=== PATIENT | female | born 1970 | race Caucasian/White ===

== ENCOUNTER 2016-06-23 18:47 | Emergency (ER) | payer OTHER ==
[2016-06-23] MEDS ORDERED: HYDROcodone/APAP 5/325 MG 1 TAB TABLET PO ONE (20:01)
[2016-06-23] MEDS ORDERED: HYDROcodone/APAP PREPAC 5/325 1 TAB TABLET PO ONE (20:05)
--- NOTE | 2016-06-23 20:21 | ER NURSING DOCUMENTATION ---
Nurse's Notes [facility] Name:Lesley Salguero Age:45 yrs Sex:Female :1970 Arrival Date:06/23/2016 Time:18:47 Bed6 Private MD: Diagnosis:Sacrum - Coccyx Contusion Presentation: 06/23 19:16 Presenting complaint: Patient states: Slipped while getting off horse, landing on tailbone at 1800 today. Transition of care: patient was not received from another setting of care. 19:16 Acuity: GEMMA 3 19:16 Method Of Arrival: Private Vehicle 19:18 Risk considerations: patient denies associated abdominal pain and neurologic symptoms. Notified ED Physician of patient's arrival and CC Isidro Guzman notified. Triage Assessment: 19:21 General: Appears uncomfortable, Behavior is cooperative, pleasant. Pain: Complains of sj pain in coccyx Pain currently is 4 out of 10 on a pain scale. Alleviated by laying prone Aggravated by sitting. Neuro: Level of Consciousness is awake, alert, Oriented to person, place, time, event, denies paresthesias. Cardiovascular: Capillary refill < 3 seconds. Respiratory: Respiratory effort is even, unlabored, Respiratory pattern is regular. Musculoskeletal: Circulation, motion, and sensation intact Capillary refill < 3 seconds Range of motion intact in all extremities. 19:24 Pain: Aggravated by weight bearing. Musculoskeletal: sj Historical: - Allergies: No known drug Allergies; - Home Meds: 1. herbals 2. vitamins - Tetanus: < 10 years. - Ebola Screening: : Patient negative for fever greater than or equal to 101.5 degrees Fahrenheit, and additional compatible Ebola Virus Disease symptoms. Patient denies exposure to infectious person. Patient denies travel to an Ebola-affected area in the 21 days before illness onset. No symptoms or risks identified at this time. . - Immunization history: Pneumococcal vaccine is not up to date, Patient has never been vaccinated Flu Vaccine None. - Social history: Smoking status: Patient states was never smoker of tobacco. Patient/guardian denies using alcohol, marijuana. Screenin:26 Infectious Disease Risk None. Abuse screen: Denies threats or abuse. Denies injuries sj from another. Nutritional screening: No deficits noted. Assessment: 19:24 Neuro: Full function. Cardiovascular: Pulses are 2+ in right dorsalis pedis artery and sj left dorsalis pedis artery. Vital Signs: 18:59 BP 105 / 60 RA Supine (auto/reg); Pulse 83 RA; Resp 16 S; Temp 97.6(O); Pulse Ox 95% on em3 R/A; Weight 56.7 kg (R); Height 5 ft. 2 in. (157.48 cm) (R); Pain 4/10; 18:59 Body Mass Index 22.86 (56.70 kg, 157.48 cm) em3 18:59 pain is 9/10 while ambulating em3 ED Course: 18:49 Patient arrived in ED. em3 18:51 Valuables Remains with patient Patient has correct armband on for positive em3 identification. Placed in gown. Bed in low position. Call light in reach. Side rails up X 1. Ice pack to injury. 19:07 Kaylee Barbosa is Primary Nurse. glenn 19:12 Prabhjot Felix MD is Attending Physician. mendez 19:18 Triage completed. sj 19:36 Patient moved to radiology. 19:40 Patient moved back from radiology. 19:42 SACRUM; COCCYX [id number] In Process Unspecified. EDMS 19:44 SACRUM; COCCYX [id number] Sent. Administered Medications: 19:50 Drug: HYDROcodone-acetaminophen 5 mg-325 mg 1 tabs; Route: PO; 20:19 Follow up: Response: Medication administered at discharge. sj 19:54 Drug: HYDROcodone-acetaminophen (5mg/325 mg) 1-2 tabs 1 tabs; Route: PO; 20:20 Follow up: Response: Pharmacy closed - take home med pack Outcome: 19:47 Discharge ordered by . mendez 20:20 Patient left the ED. Signatures: Dispatcher [employer] EDMS Prabhjot Felix MD MD jm Meiklejohn, Eric 3 Kaylee Barbosa Amanda Saha
--- NOTE | 2016-06-23 20:21 | ER PHYSICIAN DOCUMENTATION ---
Physician Documentation [facility] Name:Lesley Salguero Age:45 yrs Sex:Female :1970 Arrival Date:06/23/2016 Time:18:47 Bed6 Private MD: Prabhjot Harris Disposition: 06/23/16 19:47 Discharged to Home/Self Care. Impression: Sacrum - Coccyx Contusion. - Condition is Good. - Discharge Instructions: CONTUSION, Coccyx/Sacrum. - Prescriptions for Hydrocodone- Acetaminophen 5-325 mg Oral Tablet - take 1 tablet by ORAL route every 6 hours As needed; 20 tablet. - Medical Reconciliation form form. - Follow up: Private Physician; When: As needed; Reason: Continuance of care. - Problem is new. - Symptoms have improved. HPI: 06/23 20:56 This 45 yrs old Female presents to ER via Private Vehicle with complaints of jm Back Injury. 20:56 This 45 yrs old Female presents to ER via Private Vehicle with complaints of jm Back Injury. 20:56 The patient presents with pain and an injury. The symptoms are located in the coccyx jm area. Onset: The symptoms/episode began/occurred just prior to arrival. The problem was sustained during a fall, horse. Historical: - Allergies: No known drug Allergies; - Home Meds: 1. herbals 2. vitamins - Tetanus: < 10 years. - Ebola Screening: : Patient negative for fever greater than or equal to 101.5 degrees Fahrenheit, and additional compatible Ebola Virus Disease symptoms. Patient denies exposure to infectious person. Patient denies travel to an Ebola-affected area in the 21 days before illness onset. No symptoms or risks identified at this time. . - Immunization history: Pneumococcal vaccine is not up to date, Patient has never been vaccinated Flu Vaccine None. - Social history: Smoking status: Patient states was never smoker of tobacco. Patient/guardian denies using alcohol, marijuana. ROS: 20:56 Constitutional: Negative for fatigue, fever. jm 20:56 Back: Positive for injury or acute deformity, pain with movement. 20:56 Skin: Negative for ecchymosis. Exam: 20:56 Constitutional: The patient appears alert, awake. jm 20:56 Back: vertebral tenderness, is appreciated at sacrum and coccyx. 20:56 Neuro: Motor: is normal, Gait: is steady. Vital Signs: 18:59 BP 105 / 60 RA Supine (auto/reg); Pulse 83 RA; Resp 16 S; Temp 97.6(O); Pulse Ox 95% on em3 R/A; Weight 56.7 kg (R); Height 5 ft. 2 in. (157.48 cm) (R); Pain 4/10; 18:59 Body Mass Index 22.86 (56.70 kg, 157.48 cm) em3 18:59 pain is 9/10 while ambulating em3 MDM: 19:26 Patient medically screened. 20:57 Differential diagnosis: coccyx contusion vs fx. Data reviewed: vital signs, nurses jm notes, radiologic studies, and as a result, I will discharge patient. Counseling: I had a detailed discussion with the patient and/or guardian regarding: the historical points, exam findings, and any diagnostic results supporting the discharge/admit diagnosis, radiology results, the need for outpatient follow up, with the patient's primary care provider. Medication response: The patient's symptoms have improved. 06/23 19:42 Order name: SACRUM; COCCYX [id number] EDDE 06/24 21:47 Order name: SACRUM; COCCYX [id number] EDDE Dispensed Medications: 19:50 Drug: HYDROcodone-acetaminophen 5 mg-325 mg 1 tabs; Route: PO; sj 20:19 Follow up: Response: Medication administered at discharge. 19:54 Drug: HYDROcodone-acetaminophen (5mg/325 mg) 1-2 tabs 1 tabs; Route: PO; sj 20:20 Follow up: Response: Pharmacy closed - take home med pack sj Signatures: Prabhjot Felix MD MD jm Janzen, Sarah sj
--- NOTE | 2016-06-24 21:46 | RADIOLOGY REPORT ---
HISTORY: Status post fall. Coccyx pain. COMPARISON: None. FINDINGS: 2 views of the sacrum and coccyx are obtained. The sacrum and coccyx are intact. Normal distal sacro coccygeal segmentation and alignment. There is no fracture. Normal bone mineralization. A few scattered pelvic calcifications consistent with likely pelvic phleboliths. IMPRESSION: Unremarkable x-rays of the sacrum and coccyx. Final Electronic Signature: This report was electronically signed by Francisco Thomson MD on 06/24/2016 9: 44 PM. ariana /
== END 2016-06-23 20:21 | disposition home or self-care (01) ==
LOC: ER 18:47
DX: S30.0XXA Contusion of lower back and pelvis, initial encounter (principal); V80.010A Animal-rider injured by fall from or being thrown from horse in noncollision accident, initial encounter; Y92.838 Other recreation area as the place of occurrence of the external cause; Y93.52 Activity, horseback riding
CPT/HCPCS: 72220; 99283